=== PATIENT | male | born 1995 | race Caucasian/White ===

== ENCOUNTER → 2017-01-18 | Outpatient (CLI) | payer BC, OTHER ==
--- NOTE | 2017-01-18 16:10 | DIAGNOSTIC IMAGING REPORT ---
L LOWER EXT JOINT WITHOUT CLINICAL HISTORY: 21 years-old Male with R KNEE PAIN POST OP ACL L KNEE PAIN DO BOTH. COMPARISON: Left knee radiograph 10/22/2014, left knee MRI 05/08/2013 TECHNIQUE: Multiplanar, multisequence MRI of the left knee was performed without intravenous contrast. FINDINGS: Exam is mildly limited secondary to patient motion. MENISCI: The medial and lateral meniscus are normal in position and morphology without discrete tear identified. Mild intrameniscal degeneration is noted involving the anterior horn lateral meniscus. CRUCIATE LIGAMENTS: The anterior and posterior cruciate ligaments are normal in signal, morphology and course. COLLATERAL LIGAMENTS: The popliteus tendon, biceps femoris tendon, fibular collateral ligament and iliotibial band are intact. The superficial and deep components of the medial collateral ligament are intact. EXTENSOR MECHANISM: The quadriceps and patellar tendons are intact.The medial and lateral patellar retinacula are intact. KNEE JOINT: There is no large joint effusion. There is multifocal chondral fissuring of the patellar apex, medial patellar facet and medial aspect of the lateral patellar facet with areas of high-grade chondral loss and underlying subcortical cystic change/subcortical edema which has progressed from prior study dated 05/08/2013. No significant chondral loss of the trochlear groove. No definite intra-articular loose body. No significant joint space narrowing or chondral loss seen within the medial or lateral compartments. Loose bodies posterior to the medial tibial plateau are again seen measuring up to 1.3 and 0.8 mm, nicely demonstrated on images 12 and 13 of series 6. The tibial tuberosity to trochlear groove interval is elongated at 2.7 cm. BONE MARROW: No fracture, or marrow replacing process. SOFT TISSUES: 1.5 cm collection within the deep pretibial bursa is noted on image 18 series 7 compatible with bursitis. Septated T2 hyperintense fluid collection posterior to the medial femoral condyle is again seen, 1.8 x 4.2 x 4.2 cm in AP, transverse and craniocaudal dimensions. Trace Poole's cyst is noted. The remaining soft tissues are unremarkable. IMPRESSION: 1. 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 Tubular tuberosity to trochlear groove interval is also elongated suggesting underlying patellar tracking abnormality. 2. No acute meniscal or ligamentous tear identified. 3. 1.5 cm fluid collection of the deep pretibial bursa compatible with bursitis. 4. Unchanged septated fluid collection posterior to the medial femoral condyle suggests ganglion with adjacent trace Poole's cyst. 5. Loose bodies posterior to the medial tibial plateau as above. The above report was generated using voice recognition software. It may contain grammatical, syntax or spelling errors. Electronically signed by: Lg Squires M.D. 01/18/2017 4:09 PM Dictated Date/Time: 01/18/2017 3:50 PM
--- NOTE | 2017-01-18 16:17 | DIAGNOSTIC IMAGING REPORT ---
RIGHT KNEE MRI HISTORY: R KNEE PAIN POST OP ACL L KNEE PAIN DO BOTH COMPARISON STUDY: Right knee 12/01/2015. TECHNIQUE: Multiplanar multisequence MRI of the right knee was performed according to standard department protocol without the use of contrast. FINDINGS: Menisci: The medial meniscus is intact. There is an oblique tear through the posterior root of the lateral meniscus. This is best seen on sagittal image 13 of 29. This is new from the prior study. There is also focal truncation at the body of the lateral meniscus which could be due to prior postoperative changes or a tiny free edge tear. Ligaments: The patient is status post ACL repair. The graft appears intact. The PCL and LCL are intact. The MCL is also intact and may be surgically repaired. Extensor mechanism: The quadriceps tendon and patellar ligament are intact. Articular cartilage and bone: No fracture or dislocation. Mild marrow edema seen within the lateral tibial plateau. There is a 6 mm focus of signal abnormality within the lateral tibial plateau which is concerning for an osteochondral lesion. There is no surrounding fluid to suggest an unstable fragment at this time. This demonstrates a hypointense rim. Small focus of signal abnormality with a near full-thickness cartilage defect within the overlying cartilage at this location. Mild cartilage fraying within the medial patellar facet. Best seen on axial image 10 adjacent to the medial patellar facet there is a 7 mm intra-articular loose body. This could represent a small cartilage fragment from the lateral tibial plateau or the medial patellar facet. Joint effusion: None. Soft tissues: Intact. IMPRESSION: 1. Status post repair of the ACL. The graft appears intact. The MCL is also intact. 2. A new oblique tear at the posterior root of the lateral meniscus. There is also a slightly truncated appearance to the body of the lateral meniscus which could represent a small free edge tear versus postoperative change. 3. There is a new 6 mm focus of signal abnormality within the posterior aspect of the lateral tibial plateau with overlying cartilage signal abnormality/defect. Therefore, this likely represents an osteochondral lesion. This appears to represent a stable lesion at this time. Electronically signed by: Stan Shea M.D. 01/18/2017 4:16 PM Dictated Date/Time: 01/18/2017 3:00 PM
== END | disposition home or self-care (01) ==
LOC: C.MRI 13:39
PROVIDERS: ATTEND Internal Medicine Gastroenterology
DX: S83.281A Other tear of lateral meniscus, current injury, right knee, initial encounter (principal); X58.XXXA Exposure to other specified factors, initial encounter; M25.861 Other specified joint disorders, right knee; M94.262 Chondromalacia, left knee